=== PATIENT | female | born 1990 | race Caucasian/White ===

== ENCOUNTER 2018-05-23 10:00 | Emergency (ER) | payer OTHER ==
[~2018-05-23] VITALS: Ht 170.2 cm; Wt 98.9 kg
[2018-05-23 10:05] VITALS: BP 121/62
--- NOTE | 2018-05-23 10:07 | NUR ---
PATIENT AMBULATED TO BED 6.
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
--- NOTE | 2018-05-23 10:40 | NUR ---
EVALUATED BY DR. ROMERO.
--- NOTE | 2018-05-23 10:57 | NUR ---
PT BEING TAKEN TO X-RAY
[2018-05-23] MEDS: KETOROLAC 60 MG/2 ML VIAL IM ONE ×2 (11:01→11:25)
--- NOTE | 2018-05-23 11:50 | NUR ---
PT RE-EVALUATED BY DR. ROMERO.
[2018-05-23 11:56] VITALS: BP 115/66
== END 2018-05-23 11:55 | disposition home or self-care (01) ==
LOC: MED 10:00
DX: R07.2 Precordial pain (principal); M54.5 Low back pain; V89.2XXA Person injured in unspecified motor-vehicle accident, traffic, initial encounter; Y93.89 Activity, other specified; Y92.89 Other specified places as the place of occurrence of the external cause; Y99.8 Other external cause status
CPT/HCPCS: 71046; 72040; 81002; 81025; 96372; 99284; J1885

== ENCOUNTER 2023-04-02 11:43 | Emergency (ER) | payer OTHER ==
[~2023-04-02] VITALS: Ht 170.2 cm; Wt 102.1 kg
[2023-04-02 12:01] VITALS: BP 109/66; PULSE 90; RESP 16; TEMP 98.9; O2SAT 97
[2023-04-02] MEDS ORDERED: PROM118S5 PO (13:01)
[2023-04-02] MEDS ORDERED: IBUP-2213 PO (13:01)
[2023-04-02 13:31] LABS: FLU A ANTIGEN negative (NEGATIVE); FLU B ANTIGEN NEGATIVE (NEGATIVE)
== END 2023-04-02 13:13 | disposition home or self-care (01) ==
LOC: MED 11:43
DX: B34.9 Viral infection, unspecified (principal); Z20.822 Contact with and (suspected) exposure to COVID-19; Z79.899 Other long term (current) drug therapy
CPT/HCPCS: 99283